=== PATIENT | male | born 1995 | race Caucasian/White ===

== ENCOUNTER 2018-04-15 21:38 | Emergency (ER) | payer OTHER ==
[~2018-04-15] VITALS: Ht 172.7 cm; Wt 77.1 kg
[2018-04-15 21:39] VITALS: BP 131/58
[2018-04-15] MEDS ORDERED: PREDNISONE 10 M10 MG PO (22:19)
[2018-04-15] MEDS ORDERED: ACYCLOVIR 400400 MG PO (22:19)
== END 2018-04-15 22:35 | disposition home or self-care (01) ==
LOC: ER 21:38
DX: G51.0 Bell's palsy (principal); F17.200 Nicotine dependence, unspecified, uncomplicated